=== PATIENT | male | born 1960 | race Hispanic/Latino ===

== ENCOUNTER 2021-06-15 13:21 | Emergency (ER) | payer SELFPAY ==
[2021-06-15] MEDS ORDERED: HYDROCODONE/APAP 5/325 MG TAB ONE (15:02)
--- NOTE | 2021-06-15 15:15 | RAD REPORT ---
EXAM DESCRIPTION: RAD - Elbow Right 3 View - 06/15/2021 3:06 pm CLINICAL HISTORY: PAIN COMPARISON: <Comparisons> FINDINGS: No acute fracture. An elbow effusion is present. Olecranon spurring. Small fragment along the posterior aspect of the olecranon favored to be degenerative in etiology. IMPRESSION: An elbow effusion is present. Seemingly well corticated fragment at the olecranon favore d degenerative or chronic. Correlate with site of pain. No definite fracture is seen.
--- NOTE | 2021-06-15 15:20 | RAD REPORT ---
EXAM DESCRIPTION: RAD - Foot Left 3 View - 06/15/2021 3:06 pm CLINICAL HISTORY: PAIN COMPARISON: No comparisonsNo comparisons FINDINGS: No acute fracture. No malalignment. Calcaneal spurring. Mild degenerative changes are pres ent at the first MTP joint. Midfoot degenerative changes. IMPRESSION: No acute osseous abnormality involving the left foot.
--- NOTE | 2021-06-15 15:22 | RAD REPORT ---
EXAM DESCRIPTION: RAD - Tib Fib Left - 06/15/2021 3:06 pm CLINICAL HISTORY: PAIN COMPARISON: Elbow Right 3 View dated 06/15/2021; Foot Left 3 View dated 06/15/2021 FINDINGS: A knee effusion is present. Calcaneal spurring noted. Mild mediolateral compartment knee j oint space spurring. Obliquely oriented lucency in the mid fibular diaphysis. IMPRESSION: No acute osseous abnormality involving the tibia or fibula. Lucency through the mid fibu lar diaphysis may represent a vascular groove. This would be uncommon appearance of a fracture.
--- NOTE | 2021-06-15 15:50 | ER ---
Nurse's Notes [facility] Name: Ronnell Brandt Age: 60 yrs Sex: Male : 1960 Arrival Date: 06/15/2021 Time: 13:28 Bed DX2 Private MD: Diagnosis: Pain in right elbow;Pain in left knee;Pain in left ankle and joints of left foot Presentation: 06/15 13:55 Chief complaint: Patient states: L lower leg and R elbow pain that began after falling jl7 from a standing position on Tuesday. Coronavirus screen: Client denies travel out of the [place] in the last 14 days. Ebola Screen: Patient denies exposure to infectious person. Patient denies travel to an Ebola-affected area in the 21 days before illness onset. Initial Sepsis Screen: Does the patient meet any 2 criteria? No. Patient's initial sepsis screen is negative. Does the patient have a suspected source of infection? No. Patient's initial sepsis screen is negative. Risk Assessment: Do you want to hurt yourself or someone else? Patient reports no desire to harm self or others. Onset of symptoms was June 13, 2021. 13:55 Method Of Arrival: Wheelchair jl7 13:55 Acuity: AJ 4 jl7 Historical: - Allergies: 13:56 No Known Allergies; jl7 - PMHx: 13:56 Diabetes mellitus; jl7 - Immunization history:: Client reports receiving the 2nd dose of the Covid vaccine. - Social history:: Smoking status: Patient denies any tobacco usage or history of. Screenin:27 Abuse screen: Denies threats or abuse. Denies injuries from another. Nutritional ld1 screening: No deficits noted. Tuberculosis screening: No symptoms or risk factors identified. Fall Risk None identified. Assessment: 14:27 General: Appears in no apparent distress. comfortable, Behavior is calm, cooperative, ld1 appropriate for age. Pain: Complains of pain in left leg Pain does not radiate. Pain currently is 7 out of 10 on a pain scale. Quality of pain is described as throbbing, Pain began 3 hours ago. Is continuous. Neuro: Level of Consciousness is awake, alert, obeys commands, Oriented to person, place, time, situation. Cardiovascular: Capillary refill < 3 seconds Patient's skin is warm and dry. Respiratory: Airway is patent Respiratory effort is even, unlabored, Respiratory pattern is regular, symmetrical. GI: Abdomen is flat, non-distended. : No signs and/or symptoms were reported regarding the genitourinary system. EENT: No signs and/or symptoms were reported regarding the EENT system. Derm: No signs and/or symptoms reported regarding the dermatologic system. Musculoskeletal: Swelling present in left knee Reports pain in left leg. 16:28 Reassessment: Patient appears in no apparent distress at this time. Patient is alert, ld1 oriented x 3, equal unlabored respirations, skin warm/dry/pink. Vital Signs: 13:55 BP 156 / 92; Pulse 80; Resp 16; Temp 99.1(O); Pulse Ox 99% on R/A; Weight 90.72 kg; jl7 Height 5 ft. 5 in. (165.10 cm); Pain 10/10; 14:27 BP 148 / 90; Pulse 85; Resp 18; Pulse Ox 95% on R/A; Pain 7/10; ld1 16:28 BP 138 / 88; Pulse 80; Resp 18; Pulse Ox 100% ; ld1 13:55 Body Mass Index 33.28 (90.72 kg, 165.10 cm) jl7 ED Course: 13:28 Patient arrived in ED. rg4 13:56 Triage completed. jl7 13:56 Arm band placed on right wrist. jl7 14:20 Shaquille Augustin NP is PHCP. pm1 14:20 Nabil Prater MD is Attending Physician. pm1 14:27 Patient has correct armband on for positive identification. Bed in low position. Call ld1 light in reach. Side rails up X2. Pulse ox on. NIBP on. Door closed. Noise minimized. 14:27 No provider procedures requiring assistance completed. ld1 15:06 Elbow Right 3 View XRAY In Process Unspecified. EDMS 15:06 Tib Fib Left XRAY In Process Unspecified. EDMS 15:06 Foot Left 3 View XRAY In Process Unspecified. EDMS 16:28 Patient did not have IV access during this emergency room visit. ld1 Administered Medications: 14:39 Drug: HYDROcodone-acetaminophen 5 mg-325 mg 1 tabs Route: PO; ld1 14:39 Follow up: Response: No adverse reaction ld1 16:14 Drug: SOLU-Medrol (methylPREDNISolone sodium succinate) 125 mg Route: IM; Site: left ld1 deltoid; 16:14 Follow up: Response: No adverse reaction ld1 16:14 Drug: Ketorolac 30 mg Route: IM; Site: right deltoid; ld1 16:14 Follow up: Response: No adverse reaction ld1 Outcome: 15:49 Discharge ordered by . pm1 16:28 Discharged to home with crutches. ld1 16:28 Condition: stable 16:28 Discharge instructions given to patient, Instructed on discharge instructions, follow up and referral plans. medication usage, Demonstrated understanding of instructions, follow-up care, medications. 16:28 Patient left the ED. ld1 Signatures: Dispatcher [employer] EDMS Shaquille Augustin NP [employer] INSPECTOR pm1 Yanni Lockwood4 Krishan Duong RN RN jl7 Gabby Nieto RN RN ld1
--- NOTE | 2021-06-15 15:50 | EDPHYS ---
Physician Documentation [facility] Name: Ronnell Brandt Age: 60 yrs Sex: Male : 1960 Arrival Date: 06/15/2021 Time: 13:28 Bed DX2 Private MD: ED Physician Nabil Prater HPI: 06/15 14:39 This 60 yrs old Male presents to ER via Wheelchair with complaints of Left leg pm1 pain and right elbow pain. 14:39 The patient presents with pain, that is acute. The complaints affect the right elbow pm1 and left lateral ankle and left knee. Context: The problem was sustained at home, resulted from Possible overexertion. No fall injury, the patient can partially bear weight, the patient is able to ambulate, with mild difficulty, Problem is a result from a previous injury: No. Onset: The symptoms/episode began/occurred yesterday. Modifying factors: The symptoms are alleviated by elevating leg, remaining still, the symptoms are aggravated by Movement of right elbow and weightbearing to left leg. Associated signs and symptoms: Pertinent positives: swelling, of the right elbow, Pertinent negatives numbness, tingling. Treatment prior to arrival includes: no previous treatment. Severity of symptoms: in the emergency department the symptoms are unchanged. The patient has not recently seen a physician. 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 He was carrying 2 large pieces of lumber in front of him with both hands. Patient reports waking up this morning with right elbow swelling and pain, left knee pain, and left lateral ankle pain. No contusion or fall injury. Historical: - Allergies: 13:56 No Known Allergies; jl7 - PMHx: 13:56 Diabetes mellitus; jl7 - Immunization history:: Client reports receiving the 2nd dose of the Covid vaccine. - Social history:: Smoking status: Patient denies any tobacco usage or history of. ROS: 14:39 Constitutional: Negative for fever, chills, and weight loss, Cardiovascular: Negative pm1 for chest pain, palpitations, and edema, Respiratory: Negative for shortness of breath, cough, wheezing, and pleuritic chest pain. 14:39 Skin: Negative for injury, rash, and discoloration, Neuro: Negative for headache, weakness, numbness, tingling, and seizure. 14:39 MS/extremity: Positive for pain, of the left knee and left lateral ankle and right elbow. 14:39 All other systems are negative. Exam: 14:39 Constitutional: This is a well developed, well nourished patient who is awake, alert, pm1 and in no acute distress. Head/Face: Normocephalic, atraumatic. 14:39 Back: No spinal tenderness. No costovertebral tenderness. Full range of motion. Skin: Warm, dry with normal turgor. Normal color with no rashes, no lesions, and no evidence of cellulitis. 14:39 Cardiovascular: Exam negative for acute changes, Rate: normal, Rhythm: regular, Pulses: no pulse deficits are appreciated. 14:39 Respiratory: Exam negative for acute changes, respiratory distress, shortness of breath. 14:39 Musculoskeletal/extremity: Extremities: grossly normal except: noted in the right elbow: swelling, tenderness, There is no evidence of deformity, noted in the left knee and left lateral ankle: swelling, tenderness, no evidence of decreased ROM, deformity, Circulation is intact in all extremities. Sensation intact. 14:39 Neuro: Exam negative for acute changes, Orientation: is normal, Mentation: is normal, Motor: is normal, moves all fours. Vital Signs: 13:55 BP 156 / 92; Pulse 80; Resp 16; Temp 99.1(O); Pulse Ox 99% on R/A; Weight 90.72 kg; jl7 Height 5 ft. 5 in. (165.10 cm); Pain 10/10; 14:27 BP 148 / 90; Pulse 85; Resp 18; Pulse Ox 95% on R/A; Pain 7/10; ld1 16:28 BP 138 / 88; Pulse 80; Resp 18; Pulse Ox 100% ; ld1 13:55 Body Mass Index 33.28 (90.72 kg, 165.10 cm) jl7 MDM: 14:20 Patient medically screened. pm1 15:39 Data reviewed: vital signs. Data interpreted: Pulse oximetry: on room air is 95 %. pm1 Interpretation: normal. Counseling: I had a detailed discussion with the patient and/or guardian regarding: the historical points, exam findings, and any diagnostic results supporting the discharge/admit diagnosis, radiology results, the need for outpatient follow up, to return to the emergency department if symptoms worsen or persist or if there are any questions or concerns that arise at home. 06/15 14:12 Order name: Elbow Right 3 View XRAY; Complete Time: 15:26 ss 06/15 14:12 Order name: Tib Fib Left XRAY; Complete Time: 15:26 ss 06/15 14:12 Order name: Foot Left 3 View XRAY; Complete Time: 15:26 ss 06/15 15:41 Order name: Lucas wrap-joint; Complete Time: 16:14 pm1 06/15 16:24 Order name: Crutches; Complete Time: 16:28 pm1 Administered Medications: 14:39 Drug: HYDROcodone-acetaminophen 5 mg-325 mg 1 tabs Route: PO; ld1 14:39 Follow up: Response: No adverse reaction ld1 16:14 Drug: SOLU-Medrol (methylPREDNISolone sodium succinate) 125 mg Route: IM; Site: left ld1 deltoid; 16:14 Follow up: Response: No adverse reaction ld1 16:14 Drug: Ketorolac 30 mg Route: IM; Site: right deltoid; ld1 16:14 Follow up: Response: No adverse reaction ld1 Disposition: 16:55 Co-signature as Attending Physician, Nabil Prater MD I agree with the assessment and rn plan of care. Attestation: The patient's history, exam findings, diagnostics, and a summary of any interventions or procedures was reviewed in detail with Shaquille Augustin NP. Disposition Summary: 06/15/21 15:49 Discharge Ordered Location: Home pm1 Problem: new pm1 Symptoms: have improved pm1 Condition: Stable pm1 Diagnosis - Pain in right elbow pm1 - Pain in left knee pm1 - Pain in left ankle and joints of left foot pm1 Followup: pm1 - With: Emergency Department - When: As needed - Reason: Worsening of condition Followup: pm1 - With: Private Physician - When: 2 - 3 days - Reason: Recheck today's complaints, Continuance of care, Re-evaluation by your physician Discharge Instructions: - Discharge Summary Sheet pm1 - Acute Knee Pain, Adult pm1 - Elbow Bursitis pm1 - Ankle Pain pm1 Forms: - Medication Reconciliation Form pm1 - Thank You Letter pm1 - Antibiotic Education pm1 - Prescription Opioid Use pm1 Prescriptions: - Diclofenac Sodium 75 mg Oral tablet,delayed release (DR/EC) - take 1 tablet by ORAL route every 12 hours As needed; 30 tablet; Refills: 0, pm1 Product Selection Permitted - Medrol (Sumanth) 4 mg Oral Tablets, Dose Pack - take 1 tablet by ORAL route as directed - follow package instructions; 1 pm1 packet; Refills: 0, Product Selection Permitted Signatures: Dispatcher [employer] EDMS Nabil Prater MD MD rn Marinas, Patrick, NP [employer] SUPERVISOR pm1 Krishan Duong RN RN jl7 Gabby Nieto RN RN ld1 Corrections: (The following items were deleted from the chart) 14:49 14:13 Ankle Left 3 View+RAD.RAD.BRZ ordered. EDMS EDMS 15:05 14:12 Knee Left 3 View+RAD.RAD.BRZ ordered. EDMS EDMS
[2021-06-15] MEDS ORDERED: METHYLPREDNISOLONE 125 MG INJ ONE (16:28)
[2021-06-15] MEDS ORDERED: KETOROLAC 30 MG/ML INJ ONE (16:28)
[2021-06-15 16:45] VITALS: TEMP 99.1
[2021-06-15 16:48] VITALS: BP 138/88; O2SAT 100
== END 2021-06-15 16:28 | disposition home or self-care (01) ==
LOC: ER 13:21
DX: M25.572 Pain in left ankle and joints of left foot (principal); M25.521 Pain in right elbow; E11.9 Type 2 diabetes mellitus without complications
CPT/HCPCS: 96372; 99283; J2930

== ENCOUNTER 2023-08-03 09:47 | Emergency (ER) | payer SELFPAY ==
--- NOTE | 2023-08-03 10:20 | ER ---
Nurse's Notes [facility] Name: Ronnell Brandt Age: 62 yrs Sex: Male : 1960 Arrival Date: 08/03/2023 Time: 09:47 Bed 5 Private MD: Diagnosis: Rectal pain Presentation: 08/03 09:55 Chief complaint: Patient states: last week he at too much hot salsa and jalapenos , now iw it myles when he has a BM and sometimes he has diarrhea, it usually lasts for 3-4 days but now it's lasting longer than usual. Coronavirus screen: At this time, the client does not indicate any symptoms associated with coronavirus-19. Ebola Screen: Patient negative for fever greater than or equal to 101.5 degrees Fahrenheit, and additional compatible Ebola Virus Disease symptoms Patient denies exposure to infectious person. Patient denies travel to an Ebola-affected area in the 21 days before illness onset. No symptoms or risks identified at this time. Initial Sepsis Screen: Does the patient meet any 2 criteria? No. Patient's initial sepsis screen is negative. Does the patient have a suspected source of infection? No. Patient's initial sepsis screen is negative. Risk Assessment: Do you want to hurt yourself or someone else? Patient reports no desire to harm self or others. Onset of symptoms was July 27, 2023. 09:55 Method Of Arrival: Ambulatory 09:55 Acuity: AJ 3 iw Historical: - Allergies: 09:57 No Known Allergies; iw - PMHx: 09:57 diabetes mellitus; iw - PSHx: 09:57 None; iw - Immunization history:: Adult Immunizations up to date. - Family history:: not pertinent. - Social history:: Smoking status: . Screenin:25 [facility] ED Fall Risk Assessment (Adult) Score/Fall Risk Level 0 - 2 = Low Risk hb Oriented to surroundings, Maintained a safe environment. [facility] ED Fall Risk Assessment (Adult) History of falling in the last 3 months, including since admission Confusion or Disorientation. Abuse screen: Denies threats or abuse. Denies injuries from another. Nutritional screening: No deficits noted. Tuberculosis screening: No symptoms or risk factors identified. Assessment: 10:30 General: Appears in no apparent distress. Behavior is calm, cooperative. Pain: Pain hb currently is 5 out of 10 on a pain scale. Neuro: Level of Consciousness is awake, alert, obeys commands, Oriented to person, place, time, situation. Cardiovascular: Patient's skin is warm and dry. Respiratory: Respiratory effort is even, unlabored, Respiratory pattern is regular, symmetrical. GI: Reports rectal pain. : No signs and/or symptoms were reported regarding the genitourinary system. EENT: No signs and/or symptoms were reported regarding the EENT system. Derm: Skin is pink, warm \T\ dry. Musculoskeletal: No signs and/or symptoms reported regarding the musculoskeletal system. Vital Signs: 09:55 BP 157 / 82; Pulse 61; Resp 16; Pulse Ox 100% on R/A; Weight 83.91 kg; Height 5 ft. 5 iw in. ; 09:55 Body Mass Index 30.79 (83.91 kg, 165.1 cm) iw ED Course: 09:50 Patient arrived in ED. rg4 09:57 Triage completed. iw 09:58 Arm band placed on. iw 09:59 Tevin Chadwick MD is Attending Physician. rt 10:25 Patient has correct armband on for positive identification. Provided Education on: . hb 10:25 No provider procedures requiring assistance completed. Patient did not have IV access hb during this emergency room visit. Administered Medications: No medications were administered Medication: 10:52 VIS not applicable for this client. hb Outcome: 10:19 Discharge ordered by . rt 10:52 Discharged to home ambulatory, hb 10:52 Condition: stable 10:52 Discharge instructions given to patient, Instructed on discharge instructions, follow up and referral plans. medication usage, Demonstrated understanding of instructions, follow-up care, medications, Prescriptions given X 1, 10:53 Patient left the ED. hb Signatures: Caitlin Min, RN RN iw Dorothea Richards RN RN hb Garcia, Rubi rg4 Tevin Chadwick MD MD rt
--- NOTE | 2023-08-03 10:20 | EDPHYS ---
Physician Documentation [facility] Name: Ronnell Brandt Age: 62 yrs Sex: Male : 1960 Arrival Date: 08/03/2023 Time: 09:47 Bed 5 Private MD: ED Physician Tevin Chadwick HPI: 08/03 10:36 This 62 yrs old Male presents to ER via Ambulatory with complaints of rt Diarrhea, Rectal Pain. 10:36 Patient presents to the ED with burning pain to the rectum for the past week that is rt intermittent, occurs after eating spicy meals which is frequent for him. He denies any abdominal pain, nausea, vomiting. States that the pain is worse when he wipes, denies any blood in his stool or melena. Denies other acute complaints at this time, symptoms are mild in severity, no other aggravating or alleviating factors.. Historical: - Allergies: 09:57 No Known Allergies; iw - PMHx: 09:57 diabetes mellitus; iw - PSHx: :57 None; iw - Immunization history:: Adult Immunizations up to date. - Family history:: not pertinent. - Social history:: Smoking status: . ROS: 10:36 Constitutional: Negative for fever, chills, and weight loss, Cardiovascular: Negative rt for chest pain, palpitations, and edema, Respiratory: Negative for shortness of breath, cough, wheezing, and pleuritic chest pain, Abdomen/GI: Negative for abdominal pain, nausea, vomiting, diarrhea, and constipation, MS/Extremity: Negative for injury and deformity, Skin: Negative for injury, rash, and discoloration, Neuro: Negative for headache, weakness, numbness, tingling, and seizure, Psych: Negative for depression, anxiety, suicide ideation, homicidal ideation, and hallucinations, Exam: 10:36 Constitutional: This is a well developed, well nourished patient who is awake, alert, rt and in no acute distress. Head/Face: Normocephalic, atraumatic. Chest/axilla: Normal chest wall appearance and motion. Nontender with no deformity. No lesions are appreciated. Cardiovascular: Regular rate and rhythm with a normal S1 and S2. No gallops, murmurs, or rubs. Normal PMI, no JVD. No pulse deficits. Respiratory: Lungs have equal breath sounds bilaterally, clear to auscultation and percussion. No rales, rhonchi or wheezes noted. No increased work of breathing, no retractions or nasal flaring. Abdomen/GI: Soft, non-tender, with normal bowel sounds. No distension or tympany. No guarding or rebound. No evidence of tenderness throughout. 10:36 Abdomen/GI: No abdominal tenderness or distention, external anus is normal, no overlying skin changes. There are no hemorrhoids externally or internally. No tenderness on palpation, no fluctuance on rectal exam, stool is brown., Vital Signs: 09:55 BP 157 / 82; Pulse 61; Resp 16; Pulse Ox 100% on R/A; Weight 83.91 kg; Height 5 ft. 5 iw in. ; 09:55 Body Mass Index 30.79 (83.91 kg, 165.1 cm) iw MDM: 10:02 Patient medically screened. rt 10:36 Differential diagnosis: Dermatitis, hemorrhoid, perirectal, perianal abscess. Data rt reviewed: vital signs, nurses notes. Test considered but Not performed: CT: No fluctuance, tenderness, physical exam findings to suggest abscess, CT scan is not indicated. Stable vital signs, labs not needed.. Counseling: I had a detailed discussion with the patient and/or guardian regarding the historical points, exam findings, and any diagnostic results supporting the discharge/admit diagnosis, the need for outpatient follow up, to return to the emergency department if symptoms worsen or persist or if there are any questions or concerns that arise at home. Administered Medications: No medications were administered Disposition Summary: 08/03/23 10:19 Discharge Ordered Notes: Location: Home rt Problem: new rt Symptoms: are unchanged rt Condition: Stable rt Diagnosis - Rectal pain rt Followup: rt - With: Private Physician - When: 2 - 3 days - Reason: Discharge Instructions: - Discharge Summary Sheet rt - Colorectal Cancer Screening rt Forms: - Medication Reconciliation Form rt - Thank You Letter rt - Antibiotic Education rt - Prescription Opioid Use rt - Patient Portal Instructions rt - Leadership Thank You Letter rt Prescriptions: - Anusol-HC 2.5 % Topical cream with perineal applicator - apply 1 application RECTAL route every 6 hours; 1 Applicator; Refills: 0, rt Product Selection Permitted Signatures: Caitlin Min RN RN Dorothea Richards RN RN [place], Tevin, MD MD rt
[2023-08-03 10:58] VITALS: BP 157/82; O2SAT 100
== END 2023-08-03 10:53 | disposition home or self-care (01) ==
LOC: ER 09:47
DX: K62.89 Other specified diseases of anus and rectum (principal); R19.7 Diarrhea, unspecified
CPT/HCPCS: 99283